=== PATIENT | male | born 1945 | race Caucasian/White ===

== ENCOUNTER 2021-11-09 07:36 | Day surgery (SDC) | payer MEDICARE, BC ==
[2021-11-08 12:58] LABS: BASOPHILS % (AUTO) 1.1 % (0-1); EOSINOPHILS # (AUTO) 0.1 X10'3 (0-0.9); EOSINOPHILS % (AUTO) 2.5 % (0-6); LYMPHOCYTES # (AUTO) 1.4 X10'3 (1.1-4.8); LYMPHOCYTES % (AUTO) 34.8 % (21-51); MEAN CORPUSCULAR HEMOGLOBIN 29.4 PG (27.0-31.0); MEAN CORPUSCULAR HGB CONC 34.4 g/dL (33.0-36.5); MEAN CORPUSCULAR VOLUME 85.4 FL (78-98); MEAN PLATELET VOLUME 7.5 FL (7.4-10.4); MONOCYTES # (AUTO) 0.4 X10'3 (0-0.9); MONOCYTES % (AUTO) 10.6 % (2-12); NEUTROPHILS # (AUTO) 2.1 X10'3 (1.8-7.7); PRE OP HEMATOCRIT 41.4 % (42.0-52.0); PRE OP HEMOGLOBIN 14.2 g/dL (14.0-17.9); PRE OP PLATELET COUNT 164 X10'3 (140-440); RED BLOOD COUNT 4.84 X10'6 (4.70-6.10); RED CELL DISTRIBUTION WIDTH 13.7 % (11.5-14.5)
[2021-11-08 13:10] LABS: PRE OP PROTIME 10.8 SECONDS (9.0-12.0)
[2021-11-08 13:14] LABS: ALBUMIN 4.2 G/DL (3.4-5.0); ALBUMIN/GLOBULIN RATIO 1.1 (1.1-1.5); ALKALINE PHOSPHATASE 70 IU/L (46-116); BLOOD UREA NITROGEN 26 MG/DL (7-18); BUN/CREATININE RATIO 23.6 (5.4-32.0); CALCIUM 9.4 MG/DL (8.5-10.1); CHLORIDE 105 MMOL/L (99-107); PRE OP ALT 31 U/L (30-65); PRE OP ANION GAP 6 (8-16); PRE OP AST 29 U/L (10-37); PRE OP BILIRUB, TOTAL 0.8 MG/DL (0.0-1.0); PRE OP GLUCOSE 99 MG/DL (70-104); PRE OP SODIUM 138 MMOL/L (135-145); TOTAL CARBON DIOXIDE 27.5 MMOL/L (24-32); TOTAL PROTEIN 8.2 G/DL (6.4-8.2); eGFR 65 ML/MIN
[2021-11-09] VITALS (8 sets, daily range): BP systolic 99–164; BP diastolic 41–72
[~2021-11-09] VITALS: Ht 167.6 cm; Wt 101.6 kg
[~2021-11-09 07:36] MED LIST: AMLO5TAB PO; ASPI-1071 PO; ATOR20TA66 PO; ESCI-8 PO; FENO50CA4 PO; FLUO20DR4 LEFT EAR; FLUT16SP BOTHNARES; IBUP-24 PO; IRBE150T24 PO; METO-539 PO; MV-M1TAB19 PO; OMEG1CAP13 PO; PANT-47 PO; cefazolin/dext.iso 2gm/50ml IV ONE; famotidine 20mg tablet PO ONE; ringers solution, lacted 1,000 ML IV SCH
[2021-11-09] MEDS ORDERED: BUPIVAcaine/PF 2.5 mg/ml (0.25%) 30ml vial ONE ×2 (09:29→09:33)
[2021-11-09] MEDS ORDERED: LIDOcaine 1% 30ml preserv. free vial ONE (09:33)
[2021-11-09] MEDS ORDERED: sevoflurane 250ml liquid IH ONE (10:16)
[2021-11-09] MEDS ORDERED: fentaNYL/PF 50MCG/1 ML 2ML syringe ONE (10:20)
[2021-11-09] MEDS ORDERED: midazolam 1 mg/ML 2ml injection ONE ×2 (10:21)
[2021-11-09] MEDS ORDERED: propofol inj 20 ML IV ONE (10:24)
[2021-11-09] MEDS ORDERED: ePHEDrine 50MG/ML INJ. ONE (10:53)
--- NOTE | 2021-11-09 11:15 | NUR ---
Received from OR via [facility], accompanied by Anesthesiologist NAZANIN NICHOLE and report given by Anesthesiolgist AND OR NURSE. PT ARRIVED SLEEPING ON 10L OF . LR RUNNING TO 20G IV ON LEFT HAND. LEFT INGUINAL DRESSING C/D/I. VSS. WILL CONTINUE TO MONITOR. Addendum: 11/09/21 at 1131 by Marie Roberts RN Amended: Links added.
[2021-11-09] MEDS ORDERED: ondansetron/PF 4mg/2ml inj IV PRN (11:25)
[2021-11-09] MEDS ORDERED: meperidine/PF 25mg/ml syringe IV PRN ×3 (11:25)
[2021-11-09] MEDS ORDERED: proCHLORperazine 10 MG/2 ml inj IV PRN (11:25)
[2021-11-09] MEDS ORDERED: morphine 4 MG/ML inj SYRINge IV PRN (11:25)
[2021-11-09] MEDS ORDERED: ringers solution, lacted 1,000 ML IV SCH (11:25)
[2021-11-09] MEDS ORDERED: morphine 2 MG/ML inj. syringe IV PRN (11:25)
--- NOTE | 2021-11-09 12:20 | NUR ---
PT HAS MET D/C CRITERIA. VSS. IV D/C'D WITHOUT COMPLICATIONS. LEFT INGUINAL DRESSING C/D/I. REVIEWED D/C INSTRUCTIONS WITH PATIENT AND THEY HAVE VERBALIZED UNDERSTANDING OF INSTRUCTIONS, COPIES GIVEN TO . PATIENT D/C HOME WITH ALL BELONGINGS AND GAVE TRANSPORT. Addendum: 11/09/21 at 1231 by Marie Roberts RN Amended: Links added.
== END 2021-11-09 12:20 | disposition home or self-care (01) ==
LOC: OR 07:36
PROVIDERS: ATTEND Surgery
DX: R59.0 Localized enlarged lymph nodes (principal); C77.4 Secondary and unspecified malignant neoplasm of inguinal and lower limb lymph nodes; I10 Essential (primary) hypertension; F32.9 Major depressive disorder, single episode, unspecified; K21.9 Gastro-esophageal reflux disease without esophagitis; G20 Parkinson's disease; E66.9 Obesity, unspecified; Z68.36 Body mass index [BMI] 36.0-36.9, adult; Z87.891 Personal history of nicotine dependence; Z98.890 Other specified postprocedural states; Z20.822 Contact with and (suspected) exposure to COVID-19; Z79.82 Long term (current) use of aspirin; Z79.899 Other long term (current) drug therapy; Z88.8 Allergy status to other drugs, medicaments and biological substances; Z79.01 Long term (current) use of anticoagulants; Z85.828 Personal history of other malignant neoplasm of skin
CPT/HCPCS: 36415; 38531; 80053; 82948; 85025; 85610; 85730; 87635; 88305; 88333; 88341; 88342; 93005; C9803; J0690; J2250; J2704; J3010; J3490; J7030; J7120; Z7506; Z7512; A4215; A4618; A6258; A7000